=== PATIENT | female | born 1940 | race Caucasian/White ===

== ENCOUNTER 2021-02-18 08:08 | Outpatient (RCR) | payer MEDICARE, SELFPAY | END 2021-04-23 10:45 | disposition home or self-care (01) | LOC: HO.WCC 08:08 | PROVIDERS: PCP Internal Medicine; Visit Provider Surgery | DX: S81.802D Unspecified open wound, left lower leg, subsequent encounter (principal); I70.213 Atherosclerosis of native arteries of extremities with intermittent claudication, bilateral legs; I87.301 Chronic venous hypertension (idiopathic) without complications of right lower extremity; R60.0 Localized edema; I48.20 Chronic atrial fibrillation, unspecified; Z79.01 Long term (current) use of anticoagulants; Z87.891 Personal history of nicotine dependence | CPT/HCPCS: 97597; 99212; 99213 ==